=== PATIENT | male | born 1950 | race Caucasian/White ===

== ENCOUNTER → 2016-05-27 | Outpatient (CLI) | payer BC ==
[~2016-05-27] MED LIST: COZAAR100 MG PO; ELIQUIS5 MG PO; HYDROCODON-ACE1 EAC2 PO; HYDRODIURIL-DPS25 MG PO; METFORMIN HCL500 M2 PO; SURFAK240 MG PO; TYLENOL DPS325 MG PO
== END | disposition home or self-care (01) ==
LOC: RAD.S 14:22
DX: N20.0 Calculus of kidney (principal)